=== PATIENT | female | born 1985 ===

== ENCOUNTER → 2018-10-15 | Outpatient (CLI) | payer OTHER ==
[2017-01-23 05:05] VITALS: BMI 32.4
[~2018-10-15] MED LIST: ACYC-50 PO; Benzocaine 60 ML TP; DOCU240C67 PO; ETON1VAG7 VG; IBUP800T37 PO; Lanolin TP; TUCKS TP; [UNRECOGNIZED DRUG - CODE] PO
== END ==
LOC: LAB 16:22
PROVIDERS: ATTEND Nurse Practitioner
DX: D22.71 Melanocytic nevi of right lower limb, including hip (principal)
CPT/HCPCS: 88305

== ENCOUNTER → 2018-11-26 | Outpatient (CLI) | payer OTHER ==
[2017-01-23 05:05] VITALS: BMI 32.4
[~2018-11-26] MED LIST changes: +DOXY-181 PO
== END ==
LOC: LAB 12:29
PROVIDERS: ATTEND Obstetrics & Gynecology
DX: N89.8 Other specified noninflammatory disorders of vagina (principal)
CPT/HCPCS: 87210

== ENCOUNTER → 2019-02-02 | Outpatient (CLI) | payer OTHER ==
[2017-01-23 05:05] VITALS: BMI 32.4
== END ==
LOC: LAB 10:13
PROVIDERS: ATTEND Obstetrics & Gynecology
DX: N89.8 Other specified noninflammatory disorders of vagina (principal)
CPT/HCPCS: 87210

== ENCOUNTER → 2019-03-15 | Outpatient (CLI) | payer OTHER ==
[2017-01-23 05:05] VITALS: BMI 32.4
[~2019-03-15] MED LIST changes: +PREN-127 PO
[2019-03-15 09:53] LABS: PLATELET COUNT, AUTOMATED 207 K/uL (150-450)
== END ==
LOC: LAB 08:02
PROVIDERS: ATTEND Obstetrics & Gynecology
DX: Z34.91 Encounter for supervision of normal pregnancy, unspecified, first trimester (principal)
CPT/HCPCS: 36415; 81001; 85025; 86592; 86703; 86762; 86850; 86900; 86901; 87088; 87340